=== PATIENT | female | born 1950 | race African-American/Black ===

== ENCOUNTER 2017-04-14 08:35 | Outpatient (CLI) | payer MEDICARE, OTHER | END 2017-04-14 08:36 | disposition home or self-care (01) | LOC: BICMAMMO 08:35 | PROVIDERS: ATTEND Family Medicine | DX: Z12.31 Encounter for screening mammogram for malignant neoplasm of breast (principal); Z85.3 Personal history of malignant neoplasm of breast; Z80.3 Family history of malignant neoplasm of breast | CPT/HCPCS: 77063; 77067 ==

== ENCOUNTER 2018-04-15 09:12 | Outpatient (CLI) | payer MEDICARE, MEDICAID | END 2018-04-15 09:13 | disposition home or self-care (01) | LOC: BICMAMMO 09:12 | PROVIDERS: ATTEND Family Medicine | DX: Z12.31 Encounter for screening mammogram for malignant neoplasm of breast (principal); Z80.3 Family history of malignant neoplasm of breast; Z85.3 Personal history of malignant neoplasm of breast | CPT/HCPCS: 77063; 77067 ==

== ENCOUNTER 2019-05-05 12:42 | Outpatient (CLI) | payer MEDICARE, MEDICAID ==
--- NOTE | 2019-05-05 13:48 | MMO ---
Bilateral MAMMO Bilat Screen [facility]. CLINICAL HISTORY: Patient is 68 years old and is seen for screening. The patient has the following family history of breast cancer: mother; sister and sister. The patient has a history of left Mastectomy at age 35 - malignant and left Explantation - Pt had implants put in at age 36 and taken out in. VIEWS: The views performed were: bilateral craniocaudal with tomosynthesis and bilateral mediolateral oblique with tomosynthesis. FILMS COMPARED: The present examination has been compared to prior imaging studies performed at [facility] on 02/21/2015, 03/25/2016, 04/14/2017 and 04/15/2018. This study has been interpreted with the assistance of computer-aided detection. MAMMOGRAM FINDINGS: There are scattered fibroglandular densities. Finding 1: There are stable post operative changes seen in the left breast. Finding 2: There are stable benign appearing calcifications seen in the right breast. There are no suspicious masses, suspicious calcifications, or new areas of architectural distortion. IMPRESSION: THERE IS NO MAMMOGRAPHIC EVIDENCE OF MALIGNANCY. A ROUTINE FOLLOW-UP MAMMOGRAM IN 1 YEAR IS RECOMMENDED. THE RESULTS OF THIS EXAM WERE SENT TO THE PATIENT. ACR BI-RADS Category 2 - Benign finding MAMMOGRAPHY NOTE: 1. A negative mammogram report should not delay a biopsy if a dominant of clinically suspicious mass is present. 2. Approximately 10% to 15% of breast cancers are not detected by mammography. 3. Adenosis and dense breasts may obscure an underlying neoplasm. Reported by: SEB CONNELL MD Electonically Signed: [id number]
== END 2019-05-05 12:43 | disposition home or self-care (01) ==
LOC: BICMAMMO 12:42
PROVIDERS: ATTEND Family Medicine
DX: Z12.31 Encounter for screening mammogram for malignant neoplasm of breast (principal); Z85.3 Personal history of malignant neoplasm of breast; Z80.3 Family history of malignant neoplasm of breast; Z90.12 Acquired absence of left breast and nipple; Z98.82 Breast implant status
CPT/HCPCS: 77063; 77067

== ENCOUNTER 2020-02-22 14:37 | Outpatient (CLI) | payer MEDICARE, MEDICAID ==
--- NOTE | 2020-02-22 15:42 | MRI ---
MRI lumbar spine noncontrast HISTORY: Low back pain. Neurogenic claudication. Bilateral radiculopathy. FINDINGS: Radiographs are not available for direct correlation, therefore the lowest lumbar type vert ebra will be designated as L5, with the remainder number accordingly. The conus medullaris has a normal appearance. Scattered discogenic endplate changes within the bone m arrow. Hemangioma at the anterior aspect of the T12 superior endplate. At the partially visualized lower thoracic spine, disc bulges and degenerative changes are present at the T10-11 and T11-T12 levels, with likely significant foraminal stenoses. T12-L1: Mild osteophytosis. Central canal and neural foramina are patent. L1-2: Mild disc space narrowing. Disc desiccation. Minimal chronic appearing compression of the L2 mandujano perior endplate. Posterior disc bulge and prominent facet hypertrophy. Severe stenosis of the central canal and each neural foramen. L2-3: Disc space narrowing and minimal degenerative spondylolisthesis. Posterior disc bulge and circu mferential degenerative changes, including prominent facet hypertrophy. There is severe stenosis of the central canal and each neural foramen. L3-4: Desiccation of the disc. Mild posterior disc bulge and circumferential degenerative changes. Mo derate to severe stenosis of the central canal. Moderate right and severe left foraminal stenoses. L4-5: Mild disc bulge. Degenerative changes of the facets including osteophytosis and joint fluid. Th ecal sac is patent. Moderate bilateral foraminal stenoses. L5-S1: Minimal disc bulge. Osteophytosis of the facets. Thecal sac and neural foramina are patent. IMPRESSION : Prominent multilevel degenerative changes throughout the lumbar spine as detailed above, with central canal and foraminal stenoses most severe at the L1-2 and L2-3 levels. Degenerative changes lower thoracic spine also apparent with likely foraminal stenoses at the T10-T11 and T11/T12 levels.
== END 2020-02-22 14:38 | disposition home or self-care (01) ==
LOC: TBSIIMAG 14:37
PROVIDERS: ATTEND Anesthesiology Pain Medicine
DX: M48.062 Spinal stenosis, lumbar region with neurogenic claudication (principal); M47.816 Spondylosis without myelopathy or radiculopathy, lumbar region; M47.814 Spondylosis without myelopathy or radiculopathy, thoracic region
CPT/HCPCS: 72148

== ENCOUNTER 2020-02-28 07:47 | Outpatient (CLI) | payer MEDICARE, MEDICAID ==
--- NOTE | 2020-02-28 11:02 | MRI ---
MRI ABDOMEN WITH AND WITHOUT IV CONTRAST: Date: 02/28/2020 HISTORY: Epigastric pain. FINDINGS: There are postop changes of left mastectomy, implant placement, and removal of implant in the left br east. The patient is post cholecystectomy. There is abnormal dilatation of the intra and extrahepatic bilia ry ducts, as well as the pancreatic duct. The common duct measures 13.0 mm in diameter and the pancre atic duct measures 6.0 mm in diameter. No hepatic or pancreatic masses are identified. The spleen and adrenal glands appear normal. There are cysts in the kidneys. No free fluid or lymphad enopathy is seen. The abdominal aorta is of normal caliber. Bone marrow signal is normal. IMPRESSION: Status post cholecystectomy with dilated biliary and pancreatic ducts. No definite evidence of obstru cting mass. Further evaluation with endoscopic ultrasound is recommended. POS: [facility]
== END 2020-02-28 07:48 | disposition home or self-care (01) ==
LOC: TBSIIMAG 07:47
PROVIDERS: ATTEND Internal Medicine Gastroenterology
DX: R10.13 Epigastric pain (principal); Z90.49 Acquired absence of other specified parts of digestive tract
CPT/HCPCS: 74183

== ENCOUNTER 2020-05-09 10:46 | Outpatient (CLI) | payer MEDICARE, MEDICAID ==
--- NOTE | 2020-05-09 11:57 | MMO ---
Bilateral MAMMO Bilat Screen [facility]. CLINICAL HISTORY: Patient is 69 years old and is seen for screening. The patient has the following family history of breast cancer: mother and 2 sisters. The patient has a history of left Mastectomy at age 35 - malignant and left Explantation - Pt had implants put in at age 36 and taken out in. VIEWS: The views performed were: bilateral craniocaudal with tomosynthesis and bilateral mediolateral oblique with tomosynthesis. FILMS COMPARED: The present examination has been compared to prior imaging studies performed at [facility] on 03/25/2016, 04/14/2017, 04/15/2018 and 05/05/2019. This study has been interpreted with the assistance of computer-aided detection. MAMMOGRAM FINDINGS: There are scattered fibroglandular densities. Finding 1: There are stable benign appearing calcifications seen in both breasts. Finding 2: There is a post-surgical scar seen in the left breast. There are no suspicious masses, suspicious calcifications, or new areas of architectural distortion. IMPRESSION: THERE IS NO MAMMOGRAPHIC EVIDENCE OF MALIGNANCY. A ROUTINE FOLLOW-UP MAMMOGRAM IN 1 YEAR IS RECOMMENDED. THE RESULTS OF THIS EXAM WERE SENT TO THE PATIENT. ACR BI-RADS Category 2 - Benign finding MAMMOGRAPHY NOTE: 1. A negative mammogram report should not delay a biopsy if a dominant of clinically suspicious mass is present. 2. Approximately 10% to 15% of breast cancers are not detected by mammography. 3. Adenosis and dense breasts may obscure an underlying neoplasm. Reported by: DAMIÁN OCHOA MD Electonically Signed: [id number]
== END 2020-05-09 10:47 | disposition home or self-care (01) ==
LOC: BICMAMMO 10:46
PROVIDERS: ATTEND Family Medicine
DX: Z12.31 Encounter for screening mammogram for malignant neoplasm of breast (principal); Z80.3 Family history of malignant neoplasm of breast; Z85.3 Personal history of malignant neoplasm of breast; Z90.12 Acquired absence of left breast and nipple; Z98.82 Breast implant status
CPT/HCPCS: 77063; 77067

== ENCOUNTER 2021-05-15 09:56 | Outpatient (CLI) | payer MEDICARE, OTHER, MEDICAID | END 2021-05-15 09:57 | disposition home or self-care (01) | LOC: BICMAMMO 09:56 | PROVIDERS: ATTEND Family Medicine | DX: N64.4 Mastodynia (principal) | CPT/HCPCS: 76642; 77066; G0279 ==

== ENCOUNTER 2022-05-31 09:53 | Outpatient (CLI) | payer MEDICARE, OTHER, MEDICAID | END 2022-05-31 09:54 | disposition home or self-care (01) | LOC: BICMAMMO 09:53 | PROVIDERS: ATTEND Nurse Practitioner Family | DX: Z12.31 Encounter for screening mammogram for malignant neoplasm of breast (principal); Z13.820 Encounter for screening for osteoporosis; M85.851 Other specified disorders of bone density and structure, right thigh; Z80.3 Family history of malignant neoplasm of breast; Z85.3 Personal history of malignant neoplasm of breast; Z90.12 Acquired absence of left breast and nipple; Z98.82 Breast implant status; Z78.0 Asymptomatic menopausal state | CPT/HCPCS: 77063; 77067; 77080 ==

== ENCOUNTER 2022-12-25 10:43 | Outpatient (CLI) | payer MEDICARE, OTHER, MEDICAID | END 2022-12-25 10:44 | disposition home or self-care (01) | LOC: SCSRAD 10:43 | PROVIDERS: ATTEND Family Medicine | DX: M25.512 Pain in left shoulder (principal); M79.601 Pain in right arm; M79.641 Pain in right hand; M12.811 Other specific arthropathies, not elsewhere classified, right shoulder; Z79.899 Other long term (current) drug therapy ==